=== PATIENT | male | born 1955 | race Caucasian/White ===

== ENCOUNTER → 2017-07-15 | Outpatient (CLI) | payer OTHER ==
[~2017-07-15] MED LIST: ALTACE10 MG PO; ASPIRIN325 MG PO; CRESTOR20 MG PO; DIAMOX SEQUELS500 MG PO; HUMALOG100 UNIT/2 PO; HUMULIN N100 UNIT/2 SC; LANTUS 3 M100 UNITS1 SC; LASIX40 MG PO; MULTIPLE VITAM1 EACH PO; NIASPAN,SLO-N1000 MG PO; NORVASC2.5 MG PO; TOPROL XL100 MG PO; ULORIC80 MG PO; ZANTAC300 MG PO
== END | disposition home or self-care (01) ==
LOC: CDC 12:54
DX: Z01.810 Encounter for preprocedural cardiovascular examination (principal); H43.11 Vitreous hemorrhage, right eye; I44.7 Left bundle-branch block, unspecified
CPT/HCPCS: 93000